=== PATIENT | male | born 1990 | race Caucasian/White ===

== ENCOUNTER 2018-09-10 07:40 | Emergency (ER) | payer BC ==
[~2018-09-10] VITALS: Ht 175.3 cm; Wt 81.8 kg
[2018-09-10 07:42] VITALS: BP 141/78
[2018-09-10] MEDS ORDERED: LIDOcaine 1% w/epiNEPHrine 1:200,000 30ml vial IM ONE (08:15)
[2018-09-10] MEDS ORDERED: TETanus/Pertussis (Acell)/Diphther VAC/PF (Tdap-Adult) 0.5ml syringe IM ONE (08:15)
[2018-09-12] MEDS ORDERED: ONDA8TAB13 PO (09:30)
[2018-09-12] MEDS ORDERED: PANT-47 PO (09:36)
== END 2018-09-10 09:28 | disposition home or self-care (01) ==
LOC: ER 07:41
DX: S61.412A Laceration without foreign body of left hand, initial encounter (principal); X58.XXXA Exposure to other specified factors, initial encounter; Y93.89 Activity, other specified; Y92.89 Other specified places as the place of occurrence of the external cause; Y99.8 Other external cause status
CPT/HCPCS: 12001; 90471; 90715; 99283; J3490

== ENCOUNTER 2018-09-13 09:29 | Emergency (ER) | payer BC ==
[~2018-09-13] VITALS: Ht 175.3 cm; Wt 81.8 kg
[~2018-09-13 09:29] MED LIST: ONDA8TAB13 PO; PANT-47 PO
[2018-09-13] MEDS ORDERED: ondansetron/PF 4mg/2ml inj IV ONE (10:00)
[2018-09-13] MEDS ORDERED: normal saline 1000ML IV soln IVB ONE (10:00)
[2018-09-13] MEDS ORDERED: diphenhydrAMINE 50 mg/ml inj IV ONE (10:00)
[2018-09-13 10:27] LABS: BASOPHILS % (AUTO) 0.4 % (0-1); EOSINOPHILS # (AUTO) 0.1 X10'3 (0-0.9); EOSINOPHILS % (AUTO) 0.7 % (0-6); LYMPHOCYTES # (AUTO) 1.2 X10'3 (1.1-4.8); LYMPHOCYTES % (AUTO) 11.1 % (21-51); MEAN CORPUSCULAR HEMOGLOBIN 32.2 PG (27.0-31.0); MEAN CORPUSCULAR HGB CONC 35.6 g/dL (33.0-36.5); MEAN CORPUSCULAR VOLUME 90.4 FL (78-98); MEAN PLATELET VOLUME 9.4 FL (7.4-10.4); MONOCYTES # (AUTO) 0.5 X10'3 (0-0.9); MONOCYTES % (AUTO) 4.7 % (2-12); NEUTROPHILS % (AUTO) 83.1 % (42-75); PLATELET COUNT 252 X10'3 (140-440); RED BLOOD COUNT 5.64 X10'6 (4.70-6.10); RED CELL DISTRIBUTION WIDTH 12.9 % (11.5-14.5); WHITE BLOOD COUNT 10.9 X10'3 (4.5-11.0)
[2018-09-13 10:30] LABS: HEMOGLOBIN 18.2 g/dl (14.0-17.9)
[2018-09-13 10:35] LABS: ALANINE AMINOTRANSFERASE 27 U/L (12-78); ALBUMIN 4.5 G/DL (3.4-5.0); ALBUMIN/GLOBULIN RATIO 1.3 (1.1-1.5); ALKALINE PHOSPHATASE 69 IU/L (46-116); ANION GAP 14 (8-16); ASPARTATE AMINO TRANSFERASE 23 U/L (10-37); BLOOD UREA NITROGEN 12 MG/DL (7-18); BUN/CREATININE RATIO 11.1 (5.4-32.0); CALCIUM 9.4 MG/DL (8.5-10.1); CHLORIDE 103 MMOL/L (99-107); CREATININE 1.08 MG/DL (0.60-1.10); GLUCOSE 119 MG/DL (70-104); LIPASE 115 U/L (73-393); SODIUM 138 MMOL/L (135-145); TOTAL CARBON DIOXIDE 21.5 MMOL/L (24-32); TOTAL PROTEIN 7.9 G/DL (6.4-8.2); eGFR 80 ML/MIN
[2018-09-13 10:39] LABS: POTASSIUM 3.5 MMOL/L (3.5-5.1)
[2018-09-13] MEDS ORDERED: proCHLORperazine 10 MG/2 ml inj IV ONE (10:40)
[2018-09-13] MEDS ORDERED: pantoprazole 40MG/NS 100ML BAG 100 ML IV ONE (11:00)
[2018-09-13] MEDS ORDERED: morphine 4 MG/ML inj SYRINge IV ONE (11:00)
== END 2018-09-13 12:10 | disposition home or self-care (01) ==
LOC: ER 09:30
DX: R10.13 Epigastric pain (principal); R11.10 Vomiting, unspecified; F12.90 Cannabis use, unspecified, uncomplicated; Z79.899 Other long term (current) drug therapy
CPT/HCPCS: 36415; 80053; 83690; 85025; 96365; 96375; 99283; C9113; J0780; J1200; J2270; J2405; J7030; 96361

== ENCOUNTER 2019-07-14 11:34 | Emergency (ER) | payer BC ==
[~2019-07-14] VITALS: Ht 175.3 cm; Wt 75.9 kg
[2019-07-14 12:10] LABS: BASOPHILS % (AUTO) 0.3 % (0-1); EOSINOPHILS % (AUTO) 0 % (0-6); LYMPHOCYTES # (AUTO) 0.7 X10'3 (1.1-4.8); LYMPHOCYTES % (AUTO) 3.9 % (21-51); MEAN CORPUSCULAR HEMOGLOBIN 30.9 PG (27.0-31.0); MEAN CORPUSCULAR VOLUME 88.3 FL (78-98); MEAN PLATELET VOLUME 9.1 FL (7.4-10.4); MONOCYTES # (AUTO) 0.5 X10'3 (0-0.9); MONOCYTES % (AUTO) 2.8 % (2-12); NEUTROPHILS # (AUTO) 16.5 X10'3 (1.8-7.7); PLATELET COUNT 282 X10'3 (140-440); RED BLOOD COUNT 5.89 X10'6 (4.70-6.10); WHITE BLOOD COUNT 17.8 X10'3 (4.5-11.0)
[2019-07-14 12:15] LABS: HEMOGLOBIN 18.2 g/dl (14.0-17.9)
[2019-07-14 12:31] LABS: ALANINE AMINOTRANSFERASE 23 U/L (12-78); ALBUMIN 5.2 G/DL (3.4-5.0); ALBUMIN/GLOBULIN RATIO 1.5 (1.1-1.5); ALKALINE PHOSPHATASE 64 IU/L (46-116); ANION GAP 16 (8-16); ASPARTATE AMINO TRANSFERASE 16 U/L (10-37); BILIRUBIN,TOTAL 1.4 MG/DL (0.1-1.0); BLOOD UREA NITROGEN 22 MG/DL (7-18); BUN/CREATININE RATIO 18.8 (5.4-32.0); CALCIUM 9.6 MG/DL (8.5-10.1); CHLORIDE 101 MMOL/L (99-107); CREATININE 1.17 MG/DL (0.60-1.10); GLUCOSE 137 MG/DL (70-104); LIPASE 91 U/L (73-393); POTASSIUM 3.3 MMOL/L (3.5-5.1); SODIUM 138 MMOL/L (135-145); TOTAL CARBON DIOXIDE 21.4 MMOL/L (24-32); TOTAL PROTEIN 8.7 G/DL (6.4-8.2); eGFR 73 ML/MIN
[2019-07-14] MEDS ORDERED: famotidine/PF 10 mg/ml inj IV ONE (12:45)
[2019-07-14] MEDS ORDERED: normal saline 1000ML IV soln IVB ONE ×2 (12:45→15:15)
[2019-07-14] MEDS ORDERED: pantoprazole 40 MG vial IV ONE (12:45)
[2019-07-14] MEDS ORDERED: ondansetron/PF 4mg/2ml inj IV ONE (12:45)
[2019-07-14] MEDS ORDERED: morphine 4 MG/ML inj SYRINge IV ONE (14:15)
--- NOTE | 2019-07-14 14:32 | NUR ---
relieving RN for break, pt is c/o abd pain 12/18, +chills, medicated per order, oil refinery process technician at bedside
[2019-07-14 14:54] LABS: CLARITY,URINE CLEAR (Clear); COLOR,URINE YELLOW (Yellow); GLUCOSE, URINE NEGATIVE (Neg); KETONES,URINE >=80 mg/dl (Neg); LEUKOCYTE ESTERASE ,URINE NEGATIVE (Neg); NITRITES, URINE NEGATIVE (Neg); OCCULT BLOOD,URINE TRACE-INTACT (Neg); PH,URINE 7.5 (4.8-8.0); PROTEIN,URINE TRACE mg/dl (Neg); UROBILINOGEN,URINE 0.2 E.U/dL (0.2-1.0)
[2019-07-14 14:55] LABS: UA COLLECTION TYPE URINAL
[2019-07-14 15:04] LABS: BACTERIA,URINE FEW /HPF (Neg); SQUAMOUS EPITHELIAL CELL,UR FEW /LPF (FEW)
[2019-07-14 15:05] LABS: RBC,URINE 0-2 /HPF (0-2); WBC,URINE 0-4 /HPF (0-4)
[2019-07-14] MEDS ORDERED: proCHLORperazine 10 MG/2 ml inj IV ONE (15:25)
--- NOTE | 2019-07-14 16:53 | NUR ---
RELIEVING RN FOR BREAK, PT IS RESTING QUIETLY ON GURNEY IN DARK ROOM, RESP EVEN AND UNLABORED, WAITING FOR CT RESULTS
[2019-07-14] MEDS ORDERED: metroNIDAZOLE 500mg tablet PO ONE (17:15)
[2019-07-14] MEDS ORDERED: sulfamethoxazole/trimethoprim DS (800/160mg) tablet PO ONE (17:15)
[2019-07-14] MEDS ORDERED: PANT-47 PO (17:33)
[2019-07-14] MEDS ORDERED: SULF1TAB49 PO (17:33)
[2019-07-14] MEDS ORDERED: LACT1CAP65 PO (17:33)
[2019-07-14] MEDS ORDERED: METR-159 PO (17:33)
[2019-07-14] MEDS ORDERED: ONDA8TAB6 PO (17:48)
[2019-07-14 18:11] VITALS: BP 140/82
== END 2019-07-14 18:18 | disposition home or self-care (01) ==
LOC: ER 11:35
DX: K52.9 Noninfective gastroenteritis and colitis, unspecified (principal); F12.90 Cannabis use, unspecified, uncomplicated; Z72.89 Other problems related to lifestyle; Z79.899 Other long term (current) drug therapy
CPT/HCPCS: 36415; 74176; 76700; 80053; 81001; 83605; 83690; 84145; 85025; 87040; 96361; 96374; 96375; 99285; C9113; J0780; J2270; J2405; J3490; J7030